=== PATIENT | female | born 1980 | race Caucasian/White ===

== ENCOUNTER 2016-12-26 20:45 | Emergency (ER) | payer BC, MEDICAID ==
[2016-12-26] MEDS ORDERED: KETOROLAC 30 MG/1 ML SDV IVP ONE (22:46)
[2016-12-26] MEDS ORDERED: NS 1,000 ML IV ONE (22:46)
[2016-12-26] MEDS ORDERED: KETOROLAC 30 MG/1 ML SDV ONE (22:47)
[2016-12-26] MEDS ORDERED: ONDANSETRON 4 MG/2 ML VIAL IVP ONE (23:10)
[2016-12-26] MEDS ORDERED: HYDROmorphONE/DILAUDID 1 MG/ML SYR IVP ONE (23:10)
[2016-12-26] MEDS ORDERED: ONDANSETRON 4 MG/2 ML VIAL ONE (23:11)
[2016-12-26] MEDS ORDERED: HYDROmorphONE/DILAUDID 1 MG/ML SYR ONE (23:12)
--- NOTE | 2016-12-26 23:31 | UCPHY ---
H & P Patient Type: Established Chief Complaint Nursing Narrative: migraines x 4 days. none of her usual meds are working. Time Seen by Provider: 12/26/16 22:32 HPI/ROS: This patient is well-known to our clinic with long history of migraine headaches. She presents with 4 day history of migraine headache that did not respond to her home medications. She has associated nausea but no vomiting. She reports the pain as right more than left hemicranial, throbbing in nature and sharp in nature 8 or 9/10 intensity, worse with movement. She has associated right arm paresthesias which are common for her with her migraines. She has photophobia associated with her symptoms. ROS: She has a feeling of dehydration that she attributes to decreased p.o. intake due to her ongoing nausea for the past 4 days. No fevers or other constitutional symptoms. HEENT: No recent trauma. No left ear pain. She does report right external canal pain that feels similar to her previous history of otitis externa to her. That pain is moderate with exquisite tenderness to the right ear. No sore throat. Neuro: No focal weakness. She reports no significant confusion. No neck stiffness. Pulmonary: No coughing or shortness of breath. Cardiovascular: No lightheadedness or heart palpitations. GI: No abdominal pain. : No complaints. 10 point ROS is otherwise negative. Source: Patient Exam Limitations: No limitations - Personal History Current Tetanus Diphtheria and Acellular Pertussis (TDAP): No Tetanus Vaccine Date: MARCH 14 2004 - Medical/Surgical History Hx Asthma: No Hx Chronic Respiratory Disease: No Hx Diabetes: No Hx Cardiac Disease: No Hx Renal Disease: No Hx Cirrhosis: No Hx Alcoholism: No Hx HIV/AIDS: No Hx Splenectomy or Spleen Trauma: No Other PMH: Migraines hysterectomy - Family History Significant Family History: No pertinent family hx - Social History Smoking Status: Never smoked Alcohol Use: Rarely Drug Use: None - Physical Exam Exam: Physical exam: Vital signs are normal General: Patient is in no acute distress. HEENT: Is no external evidence of trauma on exam. Nose atraumatic. Ears: Right ear: There is mild swelling to the external canal with erythema and tenderness. TM appears normal. Left ear: External canal and TM is clear. Oropharynx: No dental trauma or malocclusion. No intraoral lacerations. Eyes: Pupils are equal and reactive to light. Extraocular motions are intact. Optic fundi: Clear with no papilledema or hemorrhage. Neck: Trachea is midline with no stridor. The patient has no midline neck tenderness and retains a full range of motion without increase in pain. Lungs: Clear to auscultation bilaterally Cardiac: Regular rate and rhythm no murmur gallop or rub. Chest: Nontender. Abdomen: Soft nontender no organomegaly Neuro: GCS of 15. Cranial nerves II through XII intact. Cerebellar exam is normal as judged by symmetric rapid hand movements bilaterally. No pronator drift. No sensory or motor deficits are appreciated. Initial differential diagnosis: Migraine headache, tension headache with vomiting, viral illness, intracranial bleed, FELT COVERER infection, otitis externa, Constitutional: Initial Vital Signs Heart Rate 92 12/26/16 23:20 Blood Pressure 112/75 12/26/16 23:20 O2 Sat (%) 100 12/26/16 23:20 O2 Delivery Mode Room Air Allergies/Adverse Reactions: codeine [Codeine] Allergy (Severe, Verified 12/26/16 21:26) Abdominal Pain metoclopramide HCl [From Reglan] Allergy (Severe, Verified 12/26/16 21:26) RESTLESSNESS daptomycin [Daptomycin] Allergy (Intermediate, Verified 12/26/16 21:26) Rash prochlorperazine edisylate [From Compazine] Allergy (Mild, Verified 12/26/16 21: 26) RESTLESSNESS prochlorperazine maleate [From Compazine] Allergy (Mild, Verified 12/26/16 21:26 ) RESTLESSNESS pregabalin [From Lyrica] Allergy (Unknown, Verified 12/26/16 21:26) sumatriptan Allergy (Unknown, Verified 12/26/16 21:26) Sulfa (Sulfonamide Antibiotics) Allergy (Verified 12/26/16 21:26) Home Medications: Medication Instructions Recorded Dihydroergotamine Mesylate [D.h.e] 1 mg IM DAILY PRN 06/26/13 Topiramate [Topamax] 200 mg PO BID 06/26/13 Promethazine HCl [Phenergan 25mg 25 mg PO TID PRN #30 tab 09/17/13 (RX)] Toradol 01/30/14 Tizanidine HCl 08/22/15 Adderall Xr 10 mg Capsule 06/18/16 Ciprofloxacin/Dexamethasone 4 drops OT TID #1 otic.btl 12/26/16 [Ciprodex] Metaxalone [Skelaxin 800 mg (*)] 12/26/16 oxyCODONE HCL/ACETAMINOPHEN 12/26/16 [Percocet 10-325 mg Tablet] Medical Decision Making ED Course/Re-evaluation: IV normal saline bolus Zofran, Benadryl, Toradol, morphine with partial relief followed by a single dose of Dilaudid 0.4 mg with relief down to 09/12. Patient appears clinically well after treatment. I counseled her regarding migraine headache Discussion: Patient responded well to treatment. Not think she has a FELT COVERER infection, intracranial bleed or other complicating factors. - Data Points Medications Given: Discontinued Medications Diphenhydramine HCl (Benadryl Injection) 25 mg IVP EDNOW ONE Stop: 12/26/16 22:47 Last Admin: 12/26/16 22:49 Dose: 25 mg Hydromorphone HCl (Dilaudid) 0.4 mg IVP EDNOW ONE Stop: 12/26/16 23:11 Last Admin: 12/26/16 23:19 Dose: 0.4 mg Sodium Chloride (Ns) 1,000 mls @ 0 mls/hr IV ONCE ONE PRN Reason: Wide Open Stop: 12/26/16 22:47 Last Admin: 12/26/16 22:46 Dose: 1,000 mls Ketorolac Tromethamine (Toradol) 30 mg IVP EDNOW ONE Stop: 12/26/16 22:47 Last Admin: 12/26/16 22:51 Dose: 30 mg Morphine Sulfate (Morphine) 4 mg IVP EDNOW ONE Stop: 12/26/16 22:53 Last Admin: 12/26/16 23:02 Dose: 4 mg Ondansetron HCl (Zofran) 4 mg IVP EDNOW ONE Stop: 12/26/16 23:11 Last Admin: 12/26/16 23:19 Dose: 4 mg Departure - Departure Disposition: Home, Routine, Self-Care Clinical Impression: Dehydration, Migraine Otitis externa Qualifiers: Otitis externa type: unspecified type Laterality: right Chronicity: acute Qualified Code(s): H60.501 - Unspecified acute noninfective otitis externa, right ear Condition: Good Instructions: Otitis Externa (ED), Migraine Headache (ED) Additional Instructions: Diagnosis: Migraine 2. Dehydration 3. Otitis externa Plan: Plenty fluids Continue current medications Ciprodex antibiotic drops Go to the emergency department for any significant worsening despite the treatment plan. Referrals: Isabel Lizarraga MD [Primary Care Provider] - As per Instructions Stand Alone Forms: Work Excuse Prescriptions: Ciprofloxacin/Dexamethasone [Ciprodex] 4 drops OT TID #1 otic.btl - PQRS PQRS Measurement: NA
[2016-12-26 23:33] VITALS: BP 112/75; PULSE 92; O2SAT 100
== END 2016-12-26 23:46 | disposition home or self-care (01) ==
LOC: CED 20:45
DX: G43.909 Migraine, unspecified, not intractable, without status migrainosus (principal); H60.501 Unspecified acute noninfective otitis externa, right ear
CPT/HCPCS: 96361-PO; 96374-PO; 96375-PO; 99214-PO; G0463-PO; J1170; J1200; J1885; J2405

== ENCOUNTER 2017-02-21 19:03 | Emergency (ER) | payer BC, MEDICAID ==
[2017-02-21] MEDS ORDERED: NS 1,000 ML IV ONE (19:52)
[2017-02-21] MEDS ORDERED: IPRATROPIUM/ALBUTEROL 3 ML DEYVIAL IH ONE (19:53)
[2017-02-21] MEDS ORDERED: OXYCODONE/APAP 5/325MG PREPACK#4 BTL TAKEHOME ONE (20:30)
[2017-02-21] MEDS ORDERED: AZITHROMYCIN 250 MG TAB PO ONE (20:30)
[2017-02-21] MEDS ORDERED: ALBUTEROL INH PREPACK MDI TAKEHOME ONE (20:30)
--- NOTE | 2017-02-21 20:33 | EDPHY ---
H & P Time Seen by Provider: 02/21/17 19:42 HPI/ROS: This patient complains of coughing for 5 days-dry hacking cough with green sputum in the morning. She did have a fever 102 some chills 2 days ago and low -grade fever since. No chills over the past 24 hours. She has no pleuritic pain. She does have what feels like bronchial pain her when she coughs. She has a mild sore throat that she attributes to frequent coughing. She also has right ear pain of mild intensity and some nasal congestion. Today she developed some associated left-sided migraine headache that is throbbing in nature 7/10 intensity and similar to her previous migraines. She has no nausea or vomiting with this. She took DHE, oral Toradol and oral Phenergan at 3:00 p.m. without resolution. She also took Skelaxin and she takes Topamax daily. ROS: Constitutional: No significant fatigue. HEENT: No sinus pain. No dysphonia. No drainage from her ear change in her hearing. Pulmonary: No hemoptysis. No respiratory distress. Cardiovascular: No heart palpitations or lightheadedness. GI: No nausea or vomiting. No belly pain. : No symptoms Integumentary: No skin rash Neuro: No numbness tingling or focal weakness. 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 Smoking Status: Never smoked Physical Exam: Her vital signs are normal with exception of a pulse of 103. General Appearance: Alert, no distress. Eyes: Pupils equal and round no pallor or injection. ENT, Mouth: Mucous membranes moist. she has no cranial tenderness. Oropharynx is clear with no erythema. No dysphonia. Ears: External canals and TMs are clear bilaterally. Respiratory: She has a frequent dry cough with mild expiratory wheeze with deep breath otherwise clear to auscultation bilaterally. No rales or rhonchi. Cardiovascular: Regular rate and rhythm. No murmur gallop rub. Gastrointestinal: Abdomen is soft and nontender, no masses, bowel sounds normal. Neurological: GCS 15. Cranial nerves 2-12 grossly intact. No sensory motor deficits are appreciated. Skin: Warm and dry, no rashes. Musculoskeletal: Neck is supple nontender. Extremities are symmetrical, full range of motion. Psychiatric: Mood and affect are normal DIFFERENTIAL DIAGNOSIS: After history and physical exam differential diagnosis was considered for acute bronchitis, doubt pneumonia, URI with reactive airway disease, migraine headache, tension headache, Constitutional: Initial Vital Signs Temperature (C) 37.2 C 02/21/17 19:15 Heart Rate 103 H 02/21/17 19:15 Respiratory Rate 16 02/21/17 19:15 Blood Pressure 135/87 H 02/21/17 19:15 O2 Sat (%) 98 02/21/17 19:15 O2 Delivery Mode Room Air Allergies/Adverse Reactions: codeine [Codeine] Allergy (Severe, Verified 02/21/17 19:20) Abdominal Pain metoclopramide HCl [From Reglan] Allergy (Severe, Verified 02/21/17 19:20) RESTLESSNESS daptomycin [Daptomycin] Allergy (Intermediate, Verified 02/21/17 19:20) Rash prochlorperazine edisylate [From Compazine] Allergy (Mild, Verified 02/21/17 19: 20) RESTLESSNESS prochlorperazine maleate [From Compazine] Allergy (Mild, Verified 02/21/17 19:20 ) RESTLESSNESS pregabalin [From Lyrica] Allergy (Unknown, Verified 02/21/17 19:20) sumatriptan Allergy (Unknown, Verified 02/21/17 19:20) Sulfa (Sulfonamide Antibiotics) Allergy (Verified 02/21/17 19:20) Home Medications: Medication Instructions Recorded Dihydroergotamine Mesylate [D.h.e] 1 mg IM DAILY PRN 06/26/13 Topiramate [Topamax] 200 mg PO BID 06/26/13 Promethazine HCl [Phenergan 25mg 25 mg PO TID PRN #30 tab 09/17/13 (RX)] Toradol 01/30/14 Tizanidine HCl 08/22/15 Adderall Xr 10 mg Capsule 06/18/16 Ciprofloxacin/Dexamethasone 4 drops OT TID #1 otic.btl 12/26/16 [Ciprodex] Metaxalone [Skelaxin 800 mg (*)] 12/26/16 oxyCODONE HCL/ACETAMINOPHEN 12/26/16 [Percocet 10-325 mg Tablet] Azithromycin [Zithromax] 250 mg PO DAILY #4 tab 02/21/17 MDM/Departure - MDM Medications Given: Discontinued Medications Albuterol Sulfate (Proventil Inh Prepack) 1 mdi TAKEHOME EDNOW ONE Stop: 02/21/17 20:31 Last Admin: 02/21/17 20:38 Dose: 1 mdi Albuterol/Ipratropium (Duoneb) 3 ml IH EDNOW ONE Stop: 02/21/17 19:54 Last Admin: 02/21/17 20:30 Dose: 3 ml Azithromycin (Zithromax) 500 mg PO EDNOW ONE PRN Reason: Protocol Stop: 02/21/17 20:31 Last Admin: 02/21/17 20:42 Dose: 500 mg Diphenhydramine HCl (Benadryl Injection) 50 mg IVP EDNOW ONE Stop: 02/21/17 19:53 Last Admin: 02/21/17 20:30 Dose: Not Given Sodium Chloride (Ns) 1,000 mls @ 0 mls/hr IV ONCE ONE; Wide Open PRN Reason: Protocol Stop: 02/21/17 19:53 Last Admin: 02/21/17 20:32 Dose: Not Given Morphine Sulfate (Morphine) 4 mg IVP EDNOW ONE Stop: 02/21/17 19:54 Last Admin: 02/21/17 20:31 Dose: Not Given Oxycodone/Acetaminophen (Percocet 5/325mg Prepack#4) 1 btl TAKEHOME EDNOW ONE Stop: 02/21/17 20:31 Last Admin: 02/21/17 20:41 Dose: 1 btl ED Course/Re-evaluation: DuoNeb with marked reduction in her frequency of coughing. multiple IV attempts were made without success. Given the patient is not having nausea or vomiting will proceed with oral analgesics for her headache. She is also treated with Zithromax 500 mg p.o. for her bronchitis. She is discharged with an albuterol inhaler discussion: This patient appears clinically well without any focal neuro findings or meningismus. No clinical evidence to suggest [employer]IATE infection or bleed. While she has findings consistent bronchitis, do not appreciate evidence of pneumonia. Given her pulmonary improvement lack of other "red flag findings" I think that she is safe for discharge home without further workup at this time. the patient understands the need to return to the ED if she has any worsening of her symptoms despite the treatment plan - Depart Disposition: Home, Routine, Self-Care Clinical Impression: Acute bronchitis Qualifiers: Bronchitis organism: unspecified organism Qualified Code(s): J20.9 - Acute bronchitis, unspecified Migraine headache Qualifiers: Migraine type: unspecified Status migrainosus presence: without status migrainosus Intractability: not intractable Qualified Code(s): G43.909 - Migraine, unspecified, not intractable, without status migrainosus Condition: Good Instructions: Albuterol (By mouth), Narcotic-Analgesic/Acetaminophen (By mouth) , Migraine Headache (ED), Acute Bronchitis (ED) Additional Instructions: diagnoses: 1. Acute bronchitis 2. Migraine Plan: Zithromax antibiotic -next dose tomorrow Albuterol inhaler with spacer for cough, wheeze or shortness of breath Percocet if needed for headache prevents sleep tonight. Follow up with primary care physician this week. Return for any significant worsening despite the treatment plan. Stand Alone Forms: Work Excuse Prescriptions: Azithromycin [Zithromax] 250 mg PO DAILY #4 tab Referrals: Isabel Lizarraga MD [Primary Care Provider] - As per Instructions
[2017-02-21 20:34] VITALS: O2SAT 94
[2017-02-21 20:43] VITALS: BP 133/67; PULSE 81; RESP 18; TEMP 98.4
== END 2017-02-21 20:51 | disposition home or self-care (01) ==
LOC: CED 19:03
DX: J20.9 Acute bronchitis, unspecified (principal); G43.909 Migraine, unspecified, not intractable, without status migrainosus
CPT/HCPCS: J1200

== ENCOUNTER 2017-04-04 16:35 | Emergency (ER) | payer BC, MEDICAID ==
[2017-04-04 16:51] VITALS: TEMP 98.2
[2017-04-04] MEDS ORDERED: ONDANSETRON 4 MG/2 ML VIAL IVP ONE (17:21)
[2017-04-04] MEDS ORDERED: HALOPERIDOL LACT 5 MG/ML INJ IVP ONE (17:22)
[2017-04-04] MEDS ORDERED: MAGNESIUM SULF 1 GM/DEXTROSE 100 ML IV ONE (17:22)
[2017-04-04] MEDS ORDERED: DIAZEPAM 10 MG/2 ML SYR IVP ONE (17:23)
[2017-04-04 18:22] VITALS: RESP 16; O2SAT 95
--- NOTE | 2017-04-04 18:57 | EDPHY ---
H & P Stated Complaint: migraine since sunday, shoulder pain Time Seen by Provider: 04/04/17 17:12 HPI/ROS: This patient complains of a headache that is left hemicranial, "vice assistant city attorney" in nature 8/10 intensity present over the past 4 days initially waxing waning but steady for the past 48 hours despite taking Toradol 60 mg IM at 4:00 a.m. and DHE 1 mg IM and 4:00 a.m.. Symptoms are the same as previous migraines. She has associated neck pain extends to the trapezius region of her shoulders. Symptoms worsen with movement. She has associated photophobia and nausea but no vomiting. She was driven in by her adult daughter by private IV: for further evaluation. ROS: Constitutional: No fevers. She has mild fatigue that she attributes to decreased sleep due to the headache. HEENT: No nasal congestion or sinus pain. No visual changes. No ear complaints. No sore throat. Pulmonary: No cough shortness of breath Cardiovascular: No heart palpitations or lightheadedness. No chest pain. GI: No abdominal pain : No symptoms Integumentary: No skin rash Musculoskeletal: No recent trauma. No other complaints Endocrine: No complaints Complete review of symptoms is otherwise negative. Source: Patient Exam Limitations: No limitations - Personal History LMP (Females 10-55): Hysterectomy Tetanus Vaccine Date: MARCH 14 2004 - Medical/Surgical History PMH: Migraines Hx Asthma: Yes Hx Chronic Respiratory Disease: No Hx Diabetes: No Hx Cardiac Disease: No Hx Renal Disease: No Hx Cirrhosis: No Hx Alcoholism: No Hx HIV/AIDS: No Hx Splenectomy or Spleen Trauma: No Other PMH: Migraines, asthma as a child, hysterectomy, bilateral carpal tunnel, bursitis both shoulders, x2, planar fascitits, R knee ACL, ADHD, chronic muscle pain. - Social History Smoking Status: Never smoked Alcohol Use: Rarely Drug Use: None - Physical Exam Exam: Physical exam: Vital signs are normal General: Patient is in no acute distress. HEENT: Is no external evidence of trauma on exam. She does have cranial tenderness on the left side but this does not reproduce her symptoms. No sinus tenderness. Nose atraumatic. Ears: Clear bilaterally with no hemotympanum. Oropharynx: No dental trauma or malocclusion. No intraoral lacerations. Eyes: Pupils are equal and reactive to light. Extraocular motions are intact. Optic fundi: Clear with no papilledema or hemorrhage. Neck: Supple with no meningismus. She is a lateral paraspinous muscular tenderness bilaterally Lungs: Clear to auscultation bilaterally Cardiac: Regular rate and rhythm no murmur gallop or rub. Abdomen: Soft nontender no organomegaly Back: Nontender except for trapezius muscles bilaterally. Neuro: GCS of 15. Cranial nerves II through XII intact. Cerebellar exam is normal as judged by symmetric rapid hand movements bilaterally. No pronator drift. No sensory or motor deficits are appreciated. Initial differential diagnosis: Migraine, neck strain, tension headache, intracranial lesion, intracranial bleed Constitutional: Initial Vital Signs Temperature (C) 36.8 C 04/04/17 16:48 Heart Rate 99 04/04/17 16:48 Respiratory Rate 18 04/04/17 16:48 Blood Pressure 124/85 H 04/04/17 16:48 O2 Sat (%) 97 04/04/17 16:48 O2 Delivery Mode Room Air Allergies/Adverse Reactions: codeine [Codeine] Allergy (Severe, Verified 04/04/17 16:51) Abdominal Pain metoclopramide HCl [From Reglan] Allergy (Severe, Verified 04/04/17 16:51) RESTLESSNESS daptomycin [Daptomycin] Allergy (Intermediate, Verified 04/04/17 16:51) Rash prochlorperazine edisylate [From Compazine] Allergy (Mild, Verified 04/04/17 16: 51) RESTLESSNESS prochlorperazine maleate [From Compazine] Allergy (Mild, Verified 04/04/17 16:51 ) RESTLESSNESS pregabalin [From Lyrica] Allergy (Unknown, Verified 04/04/17 16:51) sumatriptan Allergy (Unknown, Verified 04/04/17 16:51) Sulfa (Sulfonamide Antibiotics) Allergy (Verified 04/04/17 16:51) Home Medications: Medication Instructions Recorded Dihydroergotamine Mesylate [D.h.e] 1 mg IM DAILY PRN 06/26/13 Topiramate [Topamax] 200 mg PO BID 06/26/13 Promethazine HCl [Phenergan 25mg 25 mg PO TID PRN #30 tab 09/17/13 (RX)] Toradol 05/30/14 Tizanidine HCl 08/22/15 Adderall Xr 10 mg Capsule 06/18/16 Metaxalone [Skelaxin 800 mg (*)] 12/26/16 Medical Decision Making ED Course/Re-evaluation: IV normal saline bolus, Haldol 2.5 mg IV, Zofran 4 mg IV Magnesium 1 g IV Benadryl 25 mg IV Valium 5 mg IV Patient had a brief nap and had complete resolution of her headache, nausea and neck pain. Elected to hold on IV steroids she has a history of bleeding ulcer, had 60 mg of Toradol today and had resolution of her symptoms with initial treatment plan Discussion: Given complete relief of symptoms with migraine treatment, and a exam free of neuro deficits or other concerning findings, I do not think this patient has UPS DRIVER infection, intracranial bleed or other complicating factors. - Data Points Medications Given: Discontinued Medications Diazepam (Valium Injection) 5 mg IVP EDNOW ONE Stop: 04/04/17 17:24 Last Admin: 04/04/17 17:32 Dose: 5 mg Diphenhydramine HCl (Benadryl Injection) 25 mg IVP EDNOW ONE Stop: 04/04/17 17:24 Last Admin: 04/04/17 17:34 Dose: 25 mg Haloperidol Lactate (Haldol Injection) 2.5 mg IVP EDNOW ONE Stop: 04/04/17 17:23 Last Admin: 04/04/17 17:32 Dose: 2.5 mg Magnesium Sulfate/Dextrose (Magnesium Sulf 1 Gm (Premix)) 100 mls @ 100 mls/hr IV EDNOW ONE Stop: 04/04/17 18:21 Last Admin: 04/04/17 17:38 Dose: 100 mls Ondansetron HCl (Zofran) 4 mg IVP EDNOW ONE Stop: 04/04/17 17:22 Last Admin: 04/04/17 17:31 Dose: 4 mg Departure - Departure Disposition: Home, Routine, Self-Care Clinical Impression: Neck pain Migraine Qualifiers: Migraine type: without aura Status migrainosus presence: with status migrainosus Intractability: not intractable Qualified Code(s): G43.001 - Migraine without aura, not intractable, with status migrainosus Condition: Fair Instructions: Migraine Headache (ED) Additional Instructions: Diagnosis: Migraine 2. Neck pain Plan: Home to rest. Plenty fluids Continue current migraine medications. Return for any significant worsening despite the treatment plan Referrals: Isabel Lizarraga MD [Primary Care Provider] - As per Instructions
[2017-04-04 19:11] VITALS: BP 119/74; PULSE 87
== END 2017-04-04 19:10 | disposition home or self-care (01) ==
LOC: CED 16:35
DX: G43.001 Migraine without aura, not intractable, with status migrainosus (principal); J45.909 Unspecified asthma, uncomplicated
CPT/HCPCS: 96374; J1200; J2405; J3475

== ENCOUNTER 2017-05-30 14:01 | Emergency (ER) | payer BC, MEDICAID ==
[2017-05-30 14:15] VITALS: RESP 18; TEMP 98.1
[2017-05-30] MEDS ORDERED: DEXAMETHASONE 4 MG/ML VIAL IVP ONE (14:25)
[2017-05-30] MEDS ORDERED: PROMETHAZINE HCL 25 MG/ML INJ IVP ONE (14:25)
[2017-05-30] MEDS ORDERED: NS 1,000 ML IV ONE (14:25)
[2017-05-30] MEDS ORDERED: DIAZEPAM 10 MG/2 ML SYR IVP ONE (14:25)
--- NOTE | 2017-05-30 14:30 | EDPHY ---
H & P Stated Complaint: migraine, shoulder swelling, nausea - Personal History LMP (Females 10-55): Hysterectomy Tetanus Vaccine Date: MARCH 14 2004 - Medical/Surgical History Hx Asthma: Yes Hx Chronic Respiratory Disease: No Hx Diabetes: No Hx Cardiac Disease: No Hx Renal Disease: No Hx Cirrhosis: No Hx Alcoholism: No Hx HIV/AIDS: No Hx Splenectomy or Spleen Trauma: No Other PMH: Migraines, asthma as a child, hysterectomy, bilateral carpal tunnel, bursitis both shoulders, x2, planar fascitits, R knee ACL, ADHD, chronic muscle pain. - Social History Smoking Status: Never smoked Time Seen by Provider: 05/30/17 14:16 HPI/ROS: CHIEF COMPLAINT: Migraine headache HISTORY OF PRESENT ILLNESS: This is a 36-year-old female with a long history of migraine headaches who is known to this facility. She presents today with 4 days of migraine that has not responded to her usual home medications. Home medications include Topamax and Toradol. She has taken 120 mg of Toradol in the last 2 days and has also taken some Advil. Today's migraine is similar to her previous migraines. She has left-sided head pain, photophobia, nausea, and some left facial and left arm numbness. The paresthesias have become a common feature of her migraine headaches. She denies recent fever, confusion, visual changes, neck stiffness, or numbness. She does report some tightening of her left trapezius muscle and feels that this is related to her headache pain--she experiences this as shoulder swelling.. REVIEW OF SYSTEMS: A ten point review of systems was performed and is negative with the exception of the items mentioned in the HPI. Past medical history: 1. Migraine headache 2. GI bleed 3. Chronic ankle pain Past surgical history: Hysterectomy Social history: She is . She is not currently employed. No tobacco use. General Appearance: Alert. Vital signs reviewed. Afebrile. Blood pressure 121/88. Eyes: Pupils equal and round, no conjunctival injection, no discharge. Anicteric. ENT, Mouth: Mucous membranes are moist, no oropharyngeal erythema or edema. Neck: No lymphadenopathy, supple. No in signs. Respiratory: Lungs are clear to auscultation; no wheezes, rales, or rhonchi. Cardiovascular: Regular rate and rhythm; no murmur, rub, or gallop. Gastrointestinal: Abdomen is soft and nontender. Skin: Warm and dry, no rashes on exposed skin, normal color. Back: Nontender to palpation over the thoracolumbar spine. No CVAT. Extremities: No lower extremity edema, no calf tenderness or swelling. No appreciable swelling of the left shoulder. She has full active range of motion of her left shoulder. No skin warmth over the left shoulder. Neurological: Alert and oriented. Moving all four extremities easily and equally. Cranial nerves II through XII are examined and are intact (visual acuity not tested). She does not have reproducible sensory deficits. Sensation is intact to light touch over all 4 extremities. Strength is 5/5 in major motor groups. Psychiatric: Normal affect. No agitation. (Colleen Conte) Constitutional: Initial Vital Signs Temperature (C) 36.7 C 05/30/17 14:05 Heart Rate 95 05/30/17 14:05 Respiratory Rate 18 05/30/17 14:05 Blood Pressure 121/88 H 05/30/17 14:05 O2 Sat (%) 99 05/30/17 14:05 O2 Delivery Mode Room Air Allergies/Adverse Reactions: codeine [Codeine] Allergy (Severe, Verified 05/30/17 14:08) Abdominal Pain metoclopramide HCl [From Reglan] Allergy (Severe, Verified 05/30/17 14:08) RESTLESSNESS daptomycin [Daptomycin] Allergy (Intermediate, Verified 05/30/17 14:08) Rash prochlorperazine edisylate [From Compazine] Allergy (Mild, Verified 05/30/17 14: 08) RESTLESSNESS prochlorperazine maleate [From Compazine] Allergy (Mild, Verified 05/30/17 14:08 ) RESTLESSNESS pregabalin [From Lyrica] Allergy (Unknown, Verified 05/30/17 14:08) sumatriptan Allergy (Unknown, Verified 05/30/17 14:08) Sulfa (Sulfonamide Antibiotics) Allergy (Verified 05/30/17 14:08) Home Medications: Medication Instructions Recorded Dihydroergotamine Mesylate [D.h.e] 1 mg IM DAILY PRN 06/26/13 Topiramate [Topamax] 200 mg PO BID 06/26/13 Promethazine HCl [Phenergan 25mg 25 mg PO TID PRN #30 tab 09/17/13 (RX)] Toradol 01/30/14 Adderall Xr 10 mg Capsule 06/18/16 PHENTERMINE HCL 05/30/17 Medical Decision Making ED Course/Re-evaluation: 36-year-old female with migraine headache, typical for her. Her headache is not responded to her usual home medications. She has taken over 120 mg of Toradol in the last couple of days and has also taken some ibuprofen. She has a history of GI bleeding. I will not use an anti-inflammatory to treat her headache today. She is being given normal saline 1 L IV fluid, Phenergan 12.5 mg IV (works better for her than Zofran), Benadryl 25 mg IV, Decadron 8 mg IV (to hopefully prevent rebound), and Valium 5 mg IV (for muscle spasm associated with LATHAM). Her care will be transferred to Dr. Esa Cruz at 3:00 p.m.. (Colleen Conte) Differential Diagnosis: Headache including but not limited to subarachnoid hemorrhage, migraine headache , tension headache and infectious causes such as meningitis, pharyngitis and sinusitis. (Colleen Conte) Other Provider: On re-evaluation, patient states her headache is better. She is ambulatory without neurologic deficit. Per plan from Dr. Conte, patient will be discharged home. (Esa Cruz) - Data Points Medications Given: Discontinued Medications Dexamethasone (Decadron Injection) 8 mg IVP EDNOW ONE Stop: 05/30/17 14:26 Last Admin: 05/30/17 14:45 Dose: 8 mg Diazepam (Valium Injection) 5 mg IVP EDNOW ONE Stop: 05/30/17 14:26 Last Admin: 05/30/17 14:45 Dose: 5 mg Diphenhydramine HCl (Benadryl Injection) 25 mg IVP EDNOW ONE Stop: 05/30/17 14:27 Last Admin: 05/30/17 14:43 Dose: 25 mg Sodium Chloride (Ns) 1,000 mls @ 3,000 mls/hr IV EDNOW ONE Stop: 05/30/17 14:44 Last Admin: 05/30/17 14:42 Dose: 1,000 mls Promethazine HCl (Phenergan) 12.5 mg IVP EDNOW ONE Stop: 05/30/17 14:26 Last Admin: 05/30/17 14:44 Dose: 25 mg Departure - Departure Disposition: Home, Routine, Self-Care Clinical Impression: Migraine headache Qualifiers: Migraine type: unspecified Status migrainosus presence: without status migrainosus Intractability: not intractable Qualified Code(s): G43.909 - Migraine, unspecified, not intractable, without status migrainosus Condition: Good Instructions: Migraine Headache (ED) Referrals: Isabel Lizarraga MD [Primary Care Provider] - As per Instructions
[2017-05-30 17:08] VITALS: PULSE 78
[2017-05-30 17:10] VITALS: BP 111/75; O2SAT 94
== END 2017-05-30 16:42 | disposition home or self-care (01) ==
LOC: CED 14:01
DX: G43.909 Migraine, unspecified, not intractable, without status migrainosus (principal); J45.909 Unspecified asthma, uncomplicated
CPT/HCPCS: 96374; J1100; J1200; J2550

== ENCOUNTER 2017-09-04 20:58 | Emergency (ER) | payer BC, MEDICAID ==
--- NOTE | 2017-09-04 20:59 | EDPHY ---
H & P HPI/ROS: HPI CHIEF COMPLAINT: Headache HISTORY OF PRESENT ILLNESS: Patient is a 37-year-old female, history of migraine headaches she presents emergency room with 2-3 days of ongoing left- sided headache that she describes exactly like her previous migraines that is throbbing in nature left side started gradual onset 2 days ago she has been taking her migraine medicine without much relief. Additionally she reports that she has had a bad cough. Nonproductive. Denies fever. Denies neck pain. Denies meningeal signs. States her headache is exactly like her previous migraine headaches. Additionally has a bronchitic sounding cough for the past week getting worse. Denies chest pain or shortness of breath. Patient reports to me that she has a long standing migraine headache sufferer. This is very similar to previous migraines left-sided. This where she gets her headache. Past Medical History: History of migraine headaches, GI bleed, carpal tunnel syndrome, attention deficit hyperactivity disorder, chronic muscle pain Past Surgical History: Social History: Denies daily use of drugs alcohol tobacco. Family History: Noncontributory ROS REVIEW OF SYSTEMS: A comprehensive 10 point review of systems is otherwise negative aside from elements mentioned in the history of present illness. Exam Constitutional appears nontoxic, triage nursing summary reviewed, vital signs reviewed, awake/alert. Eyes normal conjunctivae and sclera, EOMI, PERRLA. HENT normal inspection, atraumatic, moist mucus membranes, no epistaxis, neck supple/ no meningismus, no raccoon eyes. Respiratory bronchitic sounding cough on exam, clear to auscultation bilaterally, normal breath sounds, no respiratory distress, no wheezing. Cardiovascular rate normal, regular rhythm, no murmur, no edema, distal pulses normal. Gastrointestinal soft, non-tender, no rebound, no guarding, normal bowel sounds, no distension, no pulsatile mass. Genitourinary no CVA tenderness. Musculoskeletal no midline vertebral tenderness, full range of motion, no calf swelling, no tenderness of extremities, no meningismus, good pulses, neurovascularly intact. Skin pink, warm, & dry, no rash, skin atraumatic. Neurologic awake, alert and oriented x 3, AAOx3, moves all 4 extremities equally, motor intact, sensory intact, CN II-XII intact, normal cerebellar, normal vision, normal speech. Psychiatric normal mood/affect. Heme/Lymph/Immune no lymphadenopathy. Differential Diagnosis: Includes but is not limited to in a particular order migraine headache, tension headache, cluster headache, bronchitis, pneumonia Medical Decision Making: Plan for this patient DuoNeb breathing treatment for cough, and bronchitic sounding cough, IV establishment basic blood work, IV fluid bolus, migraine medication, will give her dose of Dilaudid 0.5 mg IV, Decadron and Benadryl. Re-evaluate. Re-evaluation: ED x-ray chest two view: Reviewed by myself. No acute cardiopulmonary disease. I do not appreciate focal pneumonia. 2222: Patient is feeling much better, he feels much better after DuoNeb breathing treatment her chest x-ray been reviewed is unremarkable for pneumonia. Blood work is reassuring. Her headache is improved with migraine medication. I will prescribe her azithromycin, albuterol, ibuprofen. She understands return emergency room she develops worsening symptoms includes worsening shortness of breath worsening cough worsening headache. Fever vomiting or any questions or concerns. She is comfortable this plan. Return precautions discussed. Source: Patient - Personal History Tetanus Vaccine Date: MARCH 14 2004 - Medical/Surgical History Hx Asthma: Yes Hx Chronic Respiratory Disease: No Hx Diabetes: No Hx Cardiac Disease: No Hx Renal Disease: No Hx Cirrhosis: No Hx Alcoholism: No Hx HIV/AIDS: No Hx Splenectomy or Spleen Trauma: No Other PMH: Migraines, asthma as a child, hysterectomy, bilateral carpal tunnel, bursitis both shoulders, x2, planar fascitits, R knee ACL, ADHD, chronic muscle pain. - Social History Smoking Status: Never smoked Constitutional: Initial Vital Signs Temperature (C) 36.9 C 09/04/17 21:00 Heart Rate 116 H 09/04/17 21:00 Respiratory Rate 18 09/04/17 21:00 Blood Pressure 149/102 H 09/04/17 21:00 O2 Sat (%) 98 09/04/17 21:00 O2 Delivery Mode Room Air Allergies/Adverse Reactions: codeine [Codeine] Allergy (Severe, Verified 05/30/17 14:08) Abdominal Pain metoclopramide HCl [From Reglan] Allergy (Severe, Verified 05/30/17 14:08) RESTLESSNESS daptomycin [Daptomycin] Allergy (Intermediate, Verified 05/30/17 14:08) Rash prochlorperazine edisylate [From Compazine] Allergy (Mild, Verified 05/30/17 14: 08) RESTLESSNESS prochlorperazine maleate [From Compazine] Allergy (Mild, Verified 05/30/17 14:08 ) RESTLESSNESS pregabalin [From Lyrica] Allergy (Unknown, Verified 05/30/17 14:08) sumatriptan Allergy (Unknown, Verified 05/30/17 14:08) Sulfa (Sulfonamide Antibiotics) Allergy (Verified 05/30/17 14:08) Home Medications: Medication Instructions Recorded Dihydroergotamine Mesylate [D.h.e] 1 mg IM DAILY PRN 06/26/13 Topiramate [Topamax] 200 mg PO BID 06/26/13 Promethazine HCl [Phenergan 25mg 25 mg PO TID PRN #30 tab 09/17/13 (RX)] Toradol 01/30/14 Adderall Xr 10 mg Capsule 06/18/16 PHENTERMINE HCL 05/30/17 AZITHROMYCIN [Z-PACK] 250 mg PO DAILY #6 tab 09/04/17 Albuterol [Proventil Inhaler HFA 1 - 2 puffs IH Q4H #1 mdi 09/04/17 (*)] Ibuprofen [Motrin (*)] 800 mg PO Q6-8PRN #10 tab 09/04/17 Medical Decision Making - Data Points Laboratory Results: Laboratory Results 09/04/17 21:30 09/04/17 21:30 09/04/17 09/04/17 21:30 21:30 WBC 11.54 10^3/uL H 10^3/uL (3.80-9.50) RBC 5.04 10^6/uL 10^6/uL (4.18-5.33) Hgb 14.3 g/dL g/dL (12.6-16.3) Hct 43.9 % % (38.0-47.0) MCV 87.1 fL fL (81.5-99.8) MCH 28.4 pg pg (27.9-34.1) MCHC 32.6 g/dL g/dL (32.4-36.7) RDW 14.3 % % (11.5-15.2) Plt Count 335 10^3/uL 10^3/uL (150-400) MPV 9.7 fL fL (8.7-11.7) Neut % (Auto) 58.4 % % (39.3-74.2) Lymph % (Auto) 33.7 % % (15.0-45.0) [place] % (Auto) 5.3 % % (4.5-13.0) Eos % (Auto) 1.7 % % (0.6-7.6) Baso % (Auto) 0.6 % % (0.3-1.7) Nucleat RBC Rel Count 0.0 % % (0.0-0.2) Absolute Neuts (auto) 6.74 10^3/uL H 10^3/uL (1.70-6.50) Absolute Lymphs (auto) 3.89 10^3/uL H 10^3/uL (1.00-3.00) Absolute Monos (auto) 0.61 10^3/uL 10^3/uL (0.30-0.80) Absolute Eos (auto) 0.20 10^3/uL 10^3/uL (0.03-0.40) Absolute Basos (auto) 0.07 10^3/uL 10^3/uL (0.02-0.10) Absolute Nucleated RBC 0.00 10^3/uL 10^3/uL (0-0.01) Immature Gran % 0.3 % % (0.0-1.1) Immature Gran # 0.03 10^3/uL 10^3/uL (0.00-0.10) Sodium 144 mEq/L mEq/L (134-144) Potassium 3.7 mEq/L mEq/L (3.5-5.2) Chloride 106 mEq/L mEq/L (97-110) Carbon Dioxide 20 mEq/l L mEq/l (22-31) Anion Gap 18 mEq/L H mEq/L (8-16) BUN 16 mg/dL mg/dL (7-23) Creatinine 0.6 mg/dL mg/dL (0.6-1.0) Estimated GFR > 60 Glucose 132 mg/dL H mg/dL (70-100) Calcium 8.9 mg/dL mg/dL (8.5-10.4) Medications Given: Discontinued Medications Albuterol/Ipratropium (Duoneb) 3 ml IH EDNOW ONE Stop: 09/04/17 21:12 Last Admin: 09/04/17 21:30 Dose: 3 ml Dexamethasone (Decadron Injection) 10 mg IVP EDNOW ONE Stop: 09/04/17 21:05 Last Admin: 09/04/17 21:30 Dose: 10 mg Diphenhydramine HCl (Benadryl Injection) 50 mg IVP EDNOW ONE Stop: 09/04/17 21:05 Last Admin: 09/04/17 21:30 Dose: 50 mg Hydromorphone HCl (Dilaudid) 0.5 mg IVP EDNOW ONE Stop: 09/04/17 21:06 Last Admin: 09/04/17 21:30 Dose: 0.5 mg Sodium Chloride (Ns) 1,000 mls @ 0 mls/hr IV ONCE ONE; Wide Open PRN Reason: Protocol Stop: 09/04/17 21:05 Last Admin: 09/04/17 21:29 Dose: 1,000 mls Ketorolac Tromethamine (Toradol) 30 mg IVP EDNOW ONE Stop: 09/04/17 21:05 Last Admin: 09/04/17 21:42 Dose: Not Given Departure - Departure Disposition: Home, Routine, Self-Care Clinical Impression: Bronchitis Headache Qualifiers: Headache type: unspecified Headache chronicity pattern: acute headache Intractability: not intractable Qualified Code(s): R51 - Headache Condition: Good Instructions: Acute Bronchitis (ED), General Headache (ED) Additional Instructions: 1. Stay well-hydrated drink lots of fluids. 2. Tylenol or Motrin for pain control. 3. Albuterol inhaler 2 puffs as needed every 4 hr for cough 4. Follow up with her primary care doctor. 5. Return to the emergency room if you have worsening symptoms questions or concerns. Referrals: Isabel Lizarraga MD [Primary Care Provider] - As per Instructions Prescriptions: Albuterol [Proventil Inhaler HFA (*)] 1 - 2 puffs IH Q4H #1 mdi AZITHROMYCIN [Z-PACK] 250 mg PO DAILY #6 tab Ibuprofen [Motrin (*)] 800 mg PO Q6-8PRN #10 tab
[2017-09-04] MEDS ORDERED: NS 1,000 ML IV ONE (21:04)
[2017-09-04] MEDS ORDERED: KETOROLAC 30 MG/1 ML SDV IVP ONE (21:04)
[2017-09-04] MEDS ORDERED: DEXAMETHASONE 10 MG/ML VIAL IVP ONE (21:04)
[2017-09-04] MEDS ORDERED: HYDROmorphONE/DILAUDID 1 MG/ML INJ IVP ONE (21:05)
[2017-09-04] MEDS ORDERED: IPRATROPIUM/ALBUTEROL 3 ML DEYVIAL IH ONE (21:11)
[2017-09-04 21:14] VITALS: RESP 18
[2017-09-04] MEDS ORDERED: KETOROLAC 15 MG/1 ML SDV ONE (21:34)
[2017-09-04 21:35] LABS: PLATELET COUNT 335 10^3/uL (150-400)
[2017-09-04] MEDS ORDERED: AZITHROMYCIN 250 MG TAB PO ONE (22:21)
[2017-09-04 22:38] VITALS: BP 114/79; PULSE 102; TEMP 98.2; O2SAT 96
== END 2017-09-04 22:47 | disposition home or self-care (01) ==
LOC: CED 20:58
DX: J20.9 Acute bronchitis, unspecified (principal); E86.9 Volume depletion, unspecified; J45.909 Unspecified asthma, uncomplicated
CPT/HCPCS: 71046-PO; 80048-PO; 85025-PO; 96374; J1100; J1170; J1200; J1885

== ENCOUNTER 2017-10-31 21:16 | Emergency (ER) | payer BC ==
[2017-10-31] MEDS ORDERED: MAGNESIUM SULF 1 GM/DEXTROSE 100 ML IV ONE (21:42)
[2017-10-31] MEDS ORDERED: HALOPERIDOL LACT 5 MG/ML INJ IVP ONE (21:42)
[2017-10-31] MEDS ORDERED: DEXAMETHASONE 10 MG/ML VIAL IVP ONE (21:42)
--- NOTE | 2017-10-31 21:47 | EDPHY ---
H & P Stated Complaint: MIGRAINE, BACK PAIN, ARM PAIN Time Seen by Provider: 10/31/17 21:31 HPI/ROS: Chief Complaint: Migraine headache, back pain HPI: 37-year-old woman with a history of chronic migraines presenting with a migraine for the last 2 days. Pain is about an 8/10. Is on the left side. Is typical for her migraines. She has taken DHE and IM Toradol twice today without any relief. She has had nausea vomiting. Positive photophobia and phonophobia. She did take some Phenergan last night with her Topamax but was able to keep it down. Is not taking any oral medications today. She is well known to this department with similar presentations in the past. She is also complaining of some back pain and some left arm pain which is similar to prior episodes. For the last 2 days she has have some epigastric abdominal pain. No dark black her doctor cardiac stools. No fevers or chills. ROS: 10 point Review of Systems is negative except as noted in the HPI. Social History: No smoking, no alcohol, no recreational drug use Family History: non-contributory Physical Exam: Gen: Awake, Alert, No Distress, obese HEENT: Nose: no rhinorrhea Eyes: PERRLA, EOMI Mouth: Moist mucosa Neck: Supple, no JVD Chest: nontender, lungs clear to auscultation Heart: S1, S2 normal, no murmur Abd: Soft, mild epigastric tenderness, no guarding Back: no CVA tenderness, no midline tenderness Ext: no edema, non-tender Skin: no rash Neuro: CN II-XII intact, Sensation grossly intact, Strength 5/5 in bilateral upper and lower extremities - Personal History LMP (Females 10-55): Hysterectomy Current Tetanus/Diphtheria Vaccine: No Current Tetanus Diphtheria and Acellular Pertussis (TDAP): No Tetanus Vaccine Date: MARCH 14 2004 - Medical/Surgical History Hx Asthma: Yes Hx Chronic Respiratory Disease: No Hx Diabetes: No Hx Cardiac Disease: No Hx Renal Disease: No Hx Cirrhosis: No Hx Alcoholism: No Hx HIV/AIDS: No Hx Splenectomy or Spleen Trauma: No Other PMH: Migraines, asthma as a child, hysterectomy, bilateral carpal tunnel, bursitis both shoulders, x2, planar fascitits, R knee ACL, ADHD, chronic muscle pain. - Social History Smoking Status: Never smoked Constitutional: Initial Vital Signs Temperature (C) 36.6 C 10/31/17 21:29 Heart Rate 105 H 10/31/17 21:29 Respiratory Rate 18 10/31/17 21:29 Blood Pressure 149/99 H 10/31/17 21:29 O2 Sat (%) 96 10/31/17 21:29 O2 Delivery Mode Room Air Allergies/Adverse Reactions: codeine [Codeine] Allergy (Severe, Verified 10/31/17 21:35) Abdominal Pain metoclopramide HCl [From Reglan] Allergy (Severe, Verified 10/31/17 21:35) RESTLESSNESS daptomycin [Daptomycin] Allergy (Intermediate, Verified 10/31/17 21:35) Rash prochlorperazine edisylate [From Compazine] Allergy (Mild, Verified 10/31/17 21: 35) RESTLESSNESS prochlorperazine maleate [From Compazine] Allergy (Mild, Verified 10/31/17 21:35 ) RESTLESSNESS pregabalin [From Lyrica] Allergy (Unknown, Verified 10/31/17 21:35) sumatriptan Allergy (Unknown, Verified 10/31/17 21:35) Sulfa (Sulfonamide Antibiotics) Allergy (Verified 10/31/17 21:35) Home Medications: Medication Instructions Recorded Dihydroergotamine Mesylate [D.h.e] 1 mg IM DAILY PRN 06/26/13 Topiramate [Topamax] 200 mg PO BID 06/26/13 Promethazine HCl [Phenergan 25mg 25 mg PO TID PRN #30 tab 09/17/13 (RX)] Toradol 01/30/14 Adderall Xr 10 mg Capsule 06/18/16 PHENTERMINE HCL 05/30/17 AZITHROMYCIN [Z-PACK] 250 mg PO DAILY #6 tab 09/04/17 Albuterol [Proventil Inhaler HFA 1 - 2 puffs IH Q4H #1 mdi 09/04/17 (*)] Ibuprofen [Motrin (*)] 800 mg PO Q6-8PRN #10 tab 09/04/17 ZYRTEC 10/31/17 Medical Decision Making ED Course/Re-evaluation: Patient is feeling significantly improved after IV Haldol 2.5 mg, Benadryl 50 mg , Decadron 10 mg, and 1 g of magnesium. Will discharge with outpatient follow- up. - Data Points Medications Given: Magnesium Sulfate/Dextrose (Magnesium Sulf 1 Gm (Premix)) 100 mls @ 100 mls/hr IV EDNOW ONE Stop: 10/31/17 22:41 Last Admin: 10/31/17 22:03 Dose: 100 mls Discontinued Medications Dexamethasone (Decadron Injection) 10 mg IVP EDNOW ONE Stop: 10/31/17 21:43 Last Admin: 10/31/17 22:00 Dose: 10 mg Diphenhydramine HCl (Benadryl Injection) 50 mg IVP EDNOW ONE Stop: 10/31/17 21:43 Last Admin: 10/31/17 21:56 Dose: 50 mg Haloperidol Lactate (Haldol Injection) 2.5 mg IVP EDNOW ONE Stop: 10/31/17 21:43 Last Admin: 10/31/17 22:01 Dose: 2.5 mg Departure - Departure Disposition: Home, Routine, Self-Care Clinical Impression: Migraine headache Condition: Good Instructions: Migraine Headache (ED) Additional Instructions: Return to the emergency department full worsening headache, uncontrolled nausea vomiting, fevers, chills, or any other concerns.
[2017-10-31 23:19] VITALS: PULSE 90; RESP 20; TEMP 98.8; O2SAT 94
[2017-10-31 23:20] VITALS: BP 118/72
== END 2017-10-31 23:28 | disposition home or self-care (01) ==
LOC: CED 21:16
DX: G43.909 Migraine, unspecified, not intractable, without status migrainosus (principal); J45.909 Unspecified asthma, uncomplicated
CPT/HCPCS: 96365; J1100; J1200; J1630; J3475

== ENCOUNTER 2018-02-10 23:08 | Emergency (ER) | payer BC, MEDICAID ==
[2018-02-10] MEDS ORDERED: IPRATROPIUM/ALBUTEROL 3 ML DEYVIAL ONE (23:19)
[2018-02-10] MEDS ORDERED: predniSONE 20 MG TAB PO ONE (23:20)
[2018-02-10] MEDS ORDERED: IPRATROPIUM/ALBUTEROL 3 ML DEYVIAL IH ONE (23:20)
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
[2018-02-10] MEDS ORDERED: LORazepam 1 MG TAB PO ONE (23:50)
[2018-02-11] MEDS ORDERED: ALBUTEROL INH PREPACK MDI TAKEHOME ONE (00:20)
[2018-02-11 00:21] VITALS: BP 116/80
== END 2018-02-11 00:28 | disposition home or self-care (01) ==
LOC: CED 23:08
DX: J18.9 Pneumonia, unspecified organism (principal)
CPT/HCPCS: 71046-PO; J7512

== ENCOUNTER 2018-05-21 09:10 | Emergency (ER) | payer BC ==
[2018-05-21] MEDS ORDERED: LORazepam 2 MG/ML INJ IVP ONE (09:21)
[2018-05-21] MEDS ORDERED: NS 1,000 ML IV ONE (09:21)
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
[2018-05-21] MEDS ORDERED: LET GEL TOPICAL 1 EA SYR TP ONE (09:36)
[2018-05-21 10:11] LABS: PLATELET COUNT 324 10^3/uL (150-400)
[2018-05-21 10:27] LABS: CREATINE KINASE 97 IU/L (0-156)
[2018-05-21] MEDS ORDERED: CYCLOBENZAPRINE 10 MG TAB PO ONE (11:08)
[2018-05-21] MEDS ORDERED: OXYCODONE/APAP 5/325 TAB PO ONE (11:08)
[2018-05-21] MEDS ORDERED: TDAP ADULT 0.5 ML INJ (BOOSTRIX) IM ONE (11:14)
[2018-05-21 11:47] VITALS: BP 126/82
== END 2018-05-21 11:56 | disposition home or self-care (01) ==
LOC: EDUNIT# → SUPCPDRO 09:10
DX: G40.909 Epilepsy, unspecified, not intractable, without status epilepticus (principal); S46.912A Strain of unspecified muscle, fascia and tendon at shoulder and upper arm level, left arm, initial encounter; S39.012A Strain of muscle, fascia and tendon of lower back, initial encounter; S50.812A Abrasion of left forearm, initial encounter; S00.81XA Abrasion of other part of head, initial encounter; R40.2411 Glasgow coma scale score 13-15, in the field [EMT or ambulance]; E86.9 Volume depletion, unspecified; W19.XXXA Unspecified fall, initial encounter; Y92.481 Parking lot as the place of occurrence of the external cause; Y99.8 Other external cause status; M51.36 Other intervertebral disc degeneration, lumbar region; G43.909 Migraine, unspecified, not intractable, without status migrainosus; Z23 Encounter for immunization
CPT/HCPCS: 84484-PO; 96374; J2060

== ENCOUNTER 2018-11-17 21:21 | Inpatient (IN) | payer BC ==
[2018-11-17] MEDS ORDERED: NS 1,000 ML IV ONE (21:57)
--- NOTE | 2018-11-17 22:02 | EDPHY ---
H & P Stated Complaint: Generalized joint pain and swelling, generalized unwell. Source: Patient - Personal History Current Tetanus/Diphtheria Vaccine: Yes Current Tetanus Diphtheria and Acellular Pertussis (TDAP): Yes Tetanus Vaccine Date: 2017 - Medical/Surgical History Hx Asthma: Yes Hx Chronic Respiratory Disease: No Hx Diabetes: No Hx Cardiac Disease: No Hx Renal Disease: No Hx Cirrhosis: No Hx Alcoholism: No Hx HIV/AIDS: No Hx Splenectomy or Spleen Trauma: No Other PMH: Migraines, asthma as a child, hysterectomy, bilateral carpal tunnel, bursitis both shoulders, x2, planar fascitits, R knee ACL, ADHD, chronic muscle pain, seizure disorder unknown eitolgy. - Social History Smoking Status: Never smoked Time Seen by Provider: 11/17/18 21:24 HPI/ROS: CHIEF COMPLAINT: Joint pain and swelling and fever History by patient HISTORY OF PRESENT ILLNESS: 38-year-old woman with a history of seizure and migraines presents complaining of 24 hr of a achy joints in her upper limbs and swelling in her arms and face. Patient has general malaise and had a temperature of 99.9 at home. She has been taking Tylenol and ibuprofen around the clock because she does not feel well with minimal relief. Last was a few hours ago. She tried taking Benadryl last night and today because of the swelling and redness in her limbs. She says she often gets "red and blotchy when she is in pain". She denies any itching. Patient had a tattoo on her right upper arm 5 days ago. She denies any recent change in medications. She had a seizure about a week ago when she was in [place] because her father . She does not smoke. She rarely uses alcohol. She denies illicit injection drug use. She uses regular Toradol and DHE for her migraine headaches. REVIEW OF SYSTEMS: As in HPI, and all other systems reviewed and are negative (Madelyn Riley) - Physical Exam Exam: General Appearance: Alert, morbidly obese, hyperventilating Head: normocephalic, atraumatic Eyes: Pupils equal and round, reactive to light, no pallor or injection. Mouth: Mucous membranes moist. Oropharynx clear Neck: No bony tenderness, full range of motion Respiratory: Increased effort, lungs are clear to auscultation. No wheezes, rales or rhonchi. Cardiovascular: Rapid Regular rate and rhythm. S1, S2, no murmurs, gallops or rubs appreciated Gastrointestinal: Abdomen is soft and nontender, no masses, bowel sounds normal. Back: No CVA tenderness, no bony tenderness Neurological: Awake, alert and oriented x 3, cranial nerves 2-12 intact, no pronator drift, normal gait, Skin: Warm and dry, face and arms diffusely red and swollen. Positive healing hand print shaped tattoo to right upper arm with diffuse mild erythema and warmth of the entire arm, there is no purulent drainage or localized tenderness or crepitus. Radial pulses 2+ and equal to the left. Patient's left arm is also red and swollen, to a lesser extent.. Musculoskeletal: No deformities. Lower Extremities: full range of motion, DP2+ bilat, no edema Psychiatric: Patient has normal affect, there is no agitation. (Madelyn Riley) Constitutional: Initial Vital Signs Temperature (C) 36.9 C 11/17/18 21:29 Heart Rate 121 H 11/17/18 21:29 Respiratory Rate 22 H 11/17/18 21:29 Blood Pressure 134/86 H 11/17/18 21:29 O2 Sat (%) 96 11/17/18 21:29 O2 Delivery Mode Room Air Allergies/Adverse Reactions: codeine [Codeine] Allergy (Severe, Verified 05/21/18 10:28) Abdominal Pain metoclopramide HCl [From Reglan] Allergy (Severe, Verified 05/21/18 10:28) RESTLESSNESS daptomycin [Daptomycin] Allergy (Intermediate, Verified 05/21/18 10:28) Rash prochlorperazine edisylate [From Compazine] Allergy (Mild, Verified 05/21/18 10: 28) RESTLESSNESS prochlorperazine maleate [From Compazine] Allergy (Mild, Verified 05/21/18 10:28 ) RESTLESSNESS Sulfa (Sulfonamide Antibiotics) Allergy (Mild, Verified 11/17/18 21:24) Rash pregabalin [From Lyrica] Allergy (Unknown, Verified 11/17/18 21:24) Rash sumatriptan Allergy (Unknown, Verified 11/17/18 21:24) Rash Home Medications: Medication Instructions Recorded Dihydroergotamine Mesylate [Dhe] 1 mg IM DAILY PRN 06/26/13 Topiramate [Topamax 100MG (*)] 200 mg PO BID 06/26/13 Ketorolac Tromethamine [Toradol 15 15 mg IM DAILY PRN 01/30/14 mg/ml Inj (*)] Dextroamphetamine/Amphetamine 15 mg PO MOTUWETHFR 06/18/16 [Adderall Xr 15 mg Capsule] Phentermine HCl [Adipex-P] 37.5 mg PO DAILY 05/30/17 Cyclobenzaprine [Flexeril 10 MG 10 mg PO TID PRN #15 tab 05/21/18 (*)] Esomeprazole Mag Trihydrate 40 mg PO DAILY 11/18/18 [Nexium] Mirtazapine [Remeron] 30 mg PO HS 11/18/18 Promethazine HCl [Phenergan 25mg 50 mg PO HS 11/18/18 (*)] Ranitidine HCl [Zantac] 300 mg PO BID 11/18/18 tiZANidine HCL [Zanaflex 2MG (*)] 4 mg PO TID PRN 11/18/18 Acetaminophen [Tylenol 325mg (*)] 650 mg PO Q4HRS PRN tab 11/19/18 methylPREDNISolone [Medrol Dose 4 mg PO AD #1 ea 11/19/18 Og] oxyCODONE HCL/ACETAMINOPHEN 1 each PO Q6 #10 tablet 11/19/18 [Percocet 5-325 mg Tablet] Medical Decision Making - Diagnostics EKG Interpretation: EKG: Interpreted by me contemporaneously. Rhythm: Normal sinus rhythm. Heart rate 111 QTc 49 QRS: normal STT segment: normal T Waves: Diffuse flattening in all leads both anterior laterally as well as inferiorly and record early Q waves none Summary: Normal sinus rhythm with diffuse nonspecific with prolonged QTC at 489 (Bobby Moreno) ED Course/Re-evaluation: 38-year-old woman presents with myalgias, malaise and right greater than left arm redness and swelling in the setting of a new tattoo. I was somewhat concerned about infection of the arm. Labs were obtained including lactate because she mets SIRS criteria. Patient's white blood cell count was within normal limits but her lactate was elevated. She was given a L of normal saline started on empiric broad-spectrum antibiotics antibiotics including ertapenem and vancomycin and to cover her for MRSA given that she has a history of MRSA and this is a skin infection. Patient's heart rate improved with fluids, though she remained tachycardic. Her blood pressure remained stable. I discussed the case with the hospitalist advanced solutions architect, Dr. Rowe. Patient be transferred to [facility] for further evaluation and treatment. Total critical care time was 35 min exclusive of procedures. (Madelyn Riley) - Data Points Medications Given: Discontinued Medications Hydrocodone Bitart/Acetaminophen ([place] 5/325) 1 - 2 tab PO Q4HRS PRN PRN Reason: Pain, Moderate Able to Take PO Stop: 11/27/18 23:33 Last Admin: 11/19/18 08:55 Dose: 2 tab Cyclobenzaprine HCl (Flexeril) 10 mg PO TID PRN PRN Reason: Spasms Stop: 05/17/19 13:43 Last Admin: 11/19/18 08:55 Dose: 10 mg Diphenhydramine HCl (Benadryl Injection) 50 mg IVP EDNOW ONE Stop: 11/17/18 23:43 Last Admin: 11/17/18 23:55 Dose: 50 mg Diphenhydramine HCl (Benadryl) 25 - 50 mg PO Q6HRS PRN PRN Reason: Itching Stop: 05/16/19 23:33 Last Admin: 11/19/18 10:39 Dose: 50 mg Enoxaparin Sodium (Lovenox) 60 mg SC BID PEREZ Stop: 05/17/19 13:59 Last Admin: 11/19/18 08:55 Dose: 60 mg Famotidine (Pepcid) 20 mg PO BID PEREZ Stop: 05/17/19 20:59 Last Admin: 11/19/18 08:55 Dose: 20 mg Hydromorphone HCl (Dilaudid) 0.5 mg IVP EDNOW ONE Stop: 11/17/18 23:43 Last Admin: 11/17/18 23:55 Dose: 0.5 mg Sodium Chloride (Ns) 1,000 mls @ 0 mls/hr IV ONCE ONE; Wide Open PRN Reason: Protocol Stop: 11/17/18 21:58 Last Admin: 11/17/18 22:26 Dose: 1,000 mls Ertapenem 1 gm/ Sodium (Chloride) 100 mls @ 200 mls/hr IV EDNOW ONE PRN Reason: Protocol Stop: 11/17/18 23:10 Last Admin: 11/17/18 23:23 Dose: 100 mls Vancomycin HCl 1 gm/ Sodium (Chloride) 250 mls @ 250 mls/hr IV EDNOW ONE PRN Reason: Protocol Stop: 11/17/18 23:39 Last Admin: 11/17/18 23:55 Dose: 250 mls Sodium Chloride (Ns) 1,000 mls @ 100 mls/hr IV CONT PEREZ Stop: 11/18/18 09:44 Last Admin: 11/18/18 02:08 Dose: 1,000 mls Sodium Chloride (Ns) 3,500 mls @ 7,000 mls/hr 30 ml/kg infuse over 30 min ( 3500 ml) IV EDNOW ONE PRN Reason: Protocol Stop: 11/18/18 00:35 Last Admin: 11/17/18 23:45 Dose: 3,500 mls Vancomycin HCl 1.25 gm/ Sodium (Chloride) 250 mls @ 166.667 mls/hr IV Q8H PEREZ Stop: 12/18/18 07:59 Last Admin: 11/18/18 08:09 Dose: 250 mls Cefazolin Sodium/Dextrose (Ancef) 100 mls @ 200 mls/hr IV Q8HRS PEREZ PRN Reason: Protocol Stop: 12/18/18 09:59 Last Admin: 11/18/18 15:26 Dose: Not Given Cefazolin Sodium/Dextrose (Ancef) 100 mls @ 200 mls/hr IV Q8H PEREZ PRN Reason: Protocol Stop: 12/18/18 19:59 Last Admin: 11/19/18 11:34 Dose: Not Given Ketorolac Tromethamine (Toradol) 15 mg IVP EDNOW ONE Stop: 11/17/18 22:06 Last Admin: 11/17/18 22:26 Dose: 15 mg Lorazepam (Ativan) 0.5 - 1 mg PO Q8HRS PRN PRN Reason: Anxiety, Able to Take PO Stop: 05/16/19 23:33 Last Admin: 11/18/18 13:27 Dose: 0.5 mg Mirtazapine (Remeron) 30 mg PO HS PEREZ Stop: 05/17/19 20:59 Last Admin: 11/18/18 20:36 Dose: 30 mg Miscellaneous Medication (Dextroamphetamine/Amphetamine [Adderall Xr 15 Mg Capsule]) 15 mg PO MOTUWETHFR [facility] Stop: 05/17/19 13:44 Last Admin: 11/19/18 13:39 Dose: Not Given Miscellaneous Medication (Phentermine Hcl [Adipex-P]) 37.5 mg PO DAILY [facility] Stop: 05/18/19 08:59 Last Admin: 11/19/18 09:03 Dose: Not Given Morphine Sulfate (Morphine) 2 - 4 mg IVP Q3HRS PRN PRN Reason: Pain, Breakthrough Stop: 11/28/18 03:52 Last Admin: 11/18/18 13:27 Dose: 2 mg Ondansetron HCl (Zofran Odt) 4 mg PO Q4HRS PRN PRN Reason: Nausea/Vomiting, Use 1st Stop: 05/16/19 23:33 Last Admin: 11/19/18 11:24 Dose: 4 mg Ondansetron HCl (Zofran) 4 mg IVP EDNOW ONE Stop: 11/18/18 00:27 Last Admin: 11/18/18 01:20 Dose: Not Given Pantoprazole Sodium (Protonix) 40 mg PO DAILY [facility] Stop: 05/18/19 08:59 Last Admin: 11/19/18 08:55 Dose: 40 mg Promethazine HCl (Phenergan) 12.5 mg IVP EDNOW ONE Stop: 11/18/18 00:42 Last Admin: 11/18/18 00:44 Dose: 12.5 mg Promethazine HCl (Phenergan) 50 mg PO HS [facility] Stop: 05/17/19 20:59 Last Admin: 11/18/18 20:36 Dose: 50 mg Topiramate (Topamax) 200 mg PO BID [facility] Stop: 05/17/19 20:59 Last Admin: 11/19/18 08:55 Dose: 200 mg Point of Care Test Results: CBC CBC Collection Date 11/17/18 CBC Collection Time 22:25 WBC 5.85 RBC 4.29 HGB 12 HCT 37.2 PLT 270 Neut # 2.76 Neut 47.1 LYMPH # 2.55 LYMPH 43.6 MCV 86.7 Chemistry 11/17/18 22:35 POC Sodium 139 mEq/L mEq/L (135-145) POC Potassium 3.5 mEq/L mEq/L (3.3-5.0) POC Chloride 105.0 mEq/L mEq/L (97-110) POC Total CO2 22 mEq/L mEq/L (22-31) POC BUN 13 mg/dL mg/dL (7-23) POC Creatinine 0.8 mg/dL mg/dL (0.6-1.0) POC Glucose 232 mg/dL H mg/dL (70-100) POC Calcium 9.0 mg/dL mg/dL (8.5-10.4) Blood Gas/Lactic Acid-Venous 11/17/18 22:33 POC Lactic Acid Rusty 2.6 mmol/L H mmol/L (0.7-2.1) Influenza PCR Flu Nasal Swab Collection Date 11/17/18 Flu Nasal Swab Collection Time 21:10 Departure - Departure Disposition: [facility] Inpatient Acute Clinical Impression: Cellulitis of right upper extremity Sepsis Qualifiers: Sepsis type: sepsis due to unspecified organism Qualified Code(s): A41.9 - Sepsis, unspecified organism Clinical Impression: (Ruled Out): Cellulitis of right upper arm Condition: Good
[2018-11-17] MEDS ORDERED: KETOROLAC 15 MG/1 ML SDV IVP ONE (22:05)
[2018-11-17] MEDS ORDERED: ERTAPENEM 1 GM VIAL ONE (22:39)
[2018-11-17] MEDS ORDERED: VANCOMYCIN 1 GM in NS 250 ML IV ONE (22:40)
[2018-11-17] MEDS ORDERED: ERTAPENEM 1 GM in NS 100 ML IV ONE (22:41)
[2018-11-17] MEDS ORDERED: ONDANSETRON DISINTEGRATING 4 MG TAB PO PRN (23:34)
[2018-11-17] MEDS ORDERED: LORazepam 0.5 MG TAB PO PRN (23:34)
[2018-11-17] MEDS ORDERED: ACETAMINOPHEN 325 MG TAB PO PRN (23:34)
[2018-11-17] MEDS ORDERED: ONDANSETRON 4 MG/2 ML VIAL IVP PRN (23:34)
[2018-11-17] MEDS ORDERED: HYDROmorphONE/DILAUDID 1 MG/ML INJ IVP ONE (23:42)
[2018-11-17] MEDS ORDERED: NS 1,000 ML IV SCH (23:45)
[2018-11-18] MEDS ORDERED: NS 3,500 ML IV ONE (00:06)
[2018-11-18] MEDS ORDERED: ONDANSETRON 4 MG/2 ML VIAL IVP ONE (00:26)
[2018-11-18] MEDS ORDERED: PROMETHAZINE HCL 25 MG/ML INJ IVP ONE (00:41)
[2018-11-18] MEDS: HYDROCODONE/APAP 5/325 TAB PO PRN ×5 (01:53→22:32)
[2018-11-18 02:31] LABS: PLATELET COUNT 263 10^3/uL (150-400)
--- NOTE | 2018-11-18 05:51 | GHP ---
[f rep st] HISTORY AND PHYSICAL DATE OF ADMISSION: 11/17/2018 SOURCE: Patient provides history, appears reliable. EMR was reviewed and case discussed with ED pro vider. CHIEF COMPLAINT: Fevers, joint pain, right arm pain, swelling. HISTORY OF PRESENT ILLNESS: This is a very pleasant 38-year-old female with a past medical history s ignificant for migraine headaches, seizure disorder, chronic muscle pain, childhood asthma, history o f MRSA related skin infection, who presents to the emergency department today with complaints of feve rs, myalgias and joint pain. The patient notes right arm pain and swelling. She reports that she un derwent a tattoo 5 days ago on her right arm and a touch up over her right shoulder blade. She repor ts some nausea. No vomiting, fevers, chills, sweats. She also notes some numbness, tingling she fee ls secondary to the swelling in her right arm. Patient states she has never had such a significant c ellulitis, but she has in the past required I and D's for abscesses. She does not have any history o f IV drug use. REVIEW OF SYSTEMS: Ten systems reviewed, negative except as noted above. ALLERGIES: Codeine, patient develops GI upset. Compazine, metoclopramide, daptomycin, patient repor ts she develops an itchy rash. Vancomycin, patient reports she develops red man syndrome. Sulfa, Ly thomas, sumatriptan. PAST MEDICAL HISTORY: Significant for migraine headache, asthma in childhood, bilateral shoulder bur sitis, chronic muscle pain, seizure disorder with last seizure a week ago, history of MRSA. PAST SURGICAL HISTORY: Significant for x2, hysterectomy, bilateral carpal tunnel release, right ACL repair, multiple I and Ds, last in 2008. FAMILY HISTORY: Patient denies any diabetes, cardiac disease or skin disorders. SOCIAL HISTORY: Patient is , lives with her family. She does not utilize any tobacco. Rare alcohol intake. No illicit drugs reported. No IV drugs. CODE STATUS: Full. PHYSICAL EXAMINATION: VITAL SIGNS: Upon arrival to the emergency department, blood pressure is 134/ 86, heart rate is 121, respiratory rate 22, O2 saturation 96% on room air, and temperature 36.9. Vit als currently available: Blood pressure is 127/90, heart rate 111, respiratory rate 18, O2 saturatio n 95% on room air, temperature 37.0. GENERAL: Patient without any acute distress. She is lying cecil te still in her bed with her right arm elevated. She does appear fatigued, acutely ill, but nontoxic . She is flushed, pleasant, awake and cooperative. HEAD: Normocephalic, atraumatic. Patient does have a small area of induration on the right posterior lower scalp. No drainage. NECK: Supple. Tr achea midline. Excessive soft tissues present. CV: Tachycardic. Slightly distant heart sounds due to body habitus. Regular rate and rhythm. Unable to assess murmurs due to tachycardia and obesity. RESPIRATORY: Lungs are clear to auscultation bilaterally. No wheezes, rales, or rhonchi appreciat ed. ABDOMEN: Obese, soft, nontender to palpation. No rebound, guarding or masses appreciated. : No suprapubic tenderness to palpation. No Albarado catheter in place. MUSCULOSKELETAL: Patient move s all extremities, sits up independently. Strength grossly normal. SKIN: Patient with multiple tat toos on her arm and her upper back. The right upper arm with reported freshly created tattoo. Patie nt with erythema, tenderness and induration without any fluctuance in her right upper extremity. It is tender to palpation. No apparent open sores, but patient does have significant erythema surroundi ng her tattoo. NEURO: Grossly nonfocal. No facial drooping. Moves all extremities. Sensation int act. PSYCH: Patient is quite anxious, but she is pleasant and cooperative. LABORATORY STUDIES: WBC 5.85, H and H are 10.9 and 34.4, MCV of 88.7, platelet count is 263. Lactic acid repeated is 1.7, initial was 2.6. Point of care sodium is 139, potassium is 3.5, chloride is 1 05, CO2 is 22, BUN is 13, creatinine 0.8, glucose is 232, and calcium is 9.0. Repeated BMP upon arri adam to the hospital: Sodium is 138, potassium 4.6, chloride is 113, CO2 is 19, anion gap 6, BUN 13, creatinine 0.5, GFR greater than 60, glucose is 145, calcium 7.8. EKG was reviewed myself showing sinus tachycardia in the 110s, low voltage, nonspecific T-wave change s in the anterolateral leads with some T-wave flattening in all leads. QTc is 489. No acute ST elev ations. ASSESSMENT AND PLAN: 38-year-old female with history of seizure disorder, migraines, asthma, chronic pain, who presents to the emergency department with complaints of fevers, joint pain, and right uppe r extremity swelling and redness. 1. Right arm cellulitis suspect is secondary to her recent tattooing. Patient received vancomycin a nd a dose of ertapenem in the emergency department. She does report an adverse reaction to daptomyci n, potential allergy. Also, she reports developing red man syndrome with vancomycin dosing, usually pretreated with Benadryl; however, patient is complaining of itching diffusely, particularly in her h ands on both sides. We will continue the vancomycin for now after discussion with the patient. We w ill pretreat with Benadryl. We will request Infectious Disease consultation to assist with any addit ional recommendations. She does have a history of methicillin-resistant Staphylococcus aureus in the past with multiple incisions and drainages, but last has been about 10 years ago. 2. Severe sepsis. Patient qualifies with the elevated lactate, tachycardia, tachypnea. Lactate has normalized status post intravenous fluid bolus. Blood cultures were not obtainable due to patient's significant difficult access, which she reports has typically required a PICC line. We will try to avoid any central access. Consider a Midline in the morning. Patient continues to be tachycardic, b ut also complains of pain. 3. Acute pain and swelling. Patient reports an adverse reaction to codeine with intractable nausea and vomiting, but she is able to tolerate all other narcotics. Floweree will be available p.r.n. [place] te extremity. Ice p.r.n. 4. Anemia suspect due to chronic disease. No previous lab work for comparison, however. No evidenc e of active bleeding. Will monitor CBCs. 5. Hyperglycemia. No previous history of diabetes. She has been nonfasting. Will recheck in the m orning. If continues to rise, patient may require insulin sliding scale. 6. Hypocalcemia. We will check an albumin to see if this corrects. 7. Seizure disorder. Continue patient's home medications once med rec is completed. 8. Morbid obesity. BMI of 54.2. 9. Chronic pain. Supportive care as above. 10. Fluid, electrolyte, nutrition. IV fluids for additional liter given setting of tachycardia, but she is tolerating p.o., so will encourage. Electrolytes are adequate at this time, replace if neede d. 11. Prophylaxis. Sequential compression devices as tolerated. Lovenox if patient should stay an ad ditional day. 12. Cor status is full. 13. Disposition: Patient admitted to inpatient status on the med/surg floor given the extensive howard ure of her cellulitis. Anticipate greater than 2 midnight stay for IV antibiotics. /[id number]/MODL
--- NOTE | 2018-11-18 07:11 | PDMN ---
Medical Necessity Medical necessity: Pt meets inpt criteria per MD order and MCG M-70, Cellulitis , A-2 days. 38 y/o w/hx seizure disorder, migraines, asthma, morbid obesity w/ BMI of 54.2, and chronic pain, presented to ED w/fever, joint pain, and RUE swelling and redness, admitted w/RUE cellulitis sec to recent tattooing and sepsis as evidenced by elev lactate, tachycardia, and tachypnea. Pt has hx MRSA infections w/mult I&D's in past (last one being 10 yrs ago), ID consult pending , IVF, IV ABX's, pain management. Anticipate>2MN given clinical presentation/ extensive nature of cellulitis.
[2018-11-18] MEDS ORDERED: VANCOMYCIN 1.25 GM in NS 250 ML IV SCH (08:00)
[2018-11-18] MEDS: diphenhydrAMINE 25 MG CAP PO PRN (08:08)
--- NOTE | 2018-11-18 11:33 | GCON ---
[f rep st] CONSULTATION INFECTIOUS DISEASE CONSULTATION DATE OF CONSULTATION: 11/18/2018 REFERRING PHYSICIAN: Gail Rowe MD REASON FOR CONSULTATION: Right upper extremity cellulitis. 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 The patient describes having a tattoo performed on the ri t upper extremity approximately 1 week ago as well as some re-working of a tattoo over the right oulder. Over the last several days, she complains of having low-grade temperature without any fever greater than 100 degrees with associated diffuse myalgia and arthralgia. The patient describes that she initially had right upper extremity swelling in the region of the tattoo that spread to her forea rm and hand. This was subsequently followed by development of left upper extremity pain and swelling affecting the elbow and hand. She initially could not make a fist. She also describes having pain in the lower extremities bilaterally as well. She has had associated nausea without vomiting or diar kris. She does describe having shaking chills and night sweats. She has had no prior reactions to t attoo pigment. She does describe having some concomitant oral ulcerations. No vaginal ulcerations. No recent diarrheal illness. The patient did travel to [place] recently. She was not in the [facility] region of the [facility]. She does describe having a small irritated area of skin in the posteri or scalp region. No prior history of gout. No prior history of similar symptoms. The patient was s een with the above complaints yesterday in the emergency department where she was noted to have a nor mal white blood cell count without left shift. She does have pet dogs and cats at home and notes juana e scratches intermittently from her cats. The patient was started empirically on vancomycin as well as given a single dose of ertapenem in the emergency department. Based on the above findings, I am n ow asked to assist in her ongoing management. PAST MEDICAL HISTORY: MRSA skin and soft tissue infection with last episode being 10 years ago, obes ity, depression, seizure disorder, migraines, asthma. PAST SURGICAL HISTORY: x2, hysterectomy, carpal tunnel bilaterally, right shoulder arthros copy. CURRENT MEDICATIONS: Vancomycin 1.25 g IV q.8 hours, Wyatt as needed for pain, morphine as needed fo r pain, Ativan as needed for anxiety. ALLERGIES: Sulfonamides associated with chest rash, daptomycin associated with hives over her hands, vancomycin associated with red man syndrome but tolerates with Benadryl, Raglan, Lyrica associated w ith rash, sumatriptan associated with rash. SOCIAL HISTORY: Patient does not smoke. She rarely drinks alcohol. No drug use. Pet cats and dogs as outlined above. Travel to [place] as outlined above. FAMILY HISTORY: Hypertension; grandmother with rheumatoid arthritis. REVIEW OF SYSTEMS: Outside that noted in the HPI, remainder of 10-system review is unremarkable. PHYSICAL EXAMINATION: VITAL SIGNS: Temperature 36.5, heart rate 98, respiratory rate 18, blood pres sure 116/78, oxygen saturation 92% on room air. GENERAL: Patient is morbidly obese, in mild distres s due to pain. She appears nontoxic. HEENT: There is no scleral icterus, conjunctival injection, o r conjunctival petechiae. Oropharynx shows moist mucous membranes. No ulcerations noted. No thrush noted. No tenderness over the sinuses. No nasal discharge. NECK: Supple without lymphadenopathy or palpable thyromegaly. CHEST: Clear to auscultation bilaterally without adventitious sounds. Res piratory effort is normal. CARDIOVASCULAR: Regular rate and rhythm without murmurs, gallops, or rub s. ABDOMEN: Obese, nontender, nondistended. Difficult to assess for organomegaly based on body hab itus. MUSCULOSKELETAL: There is edema present over the right upper and left upper extremity; there is erythema over the right upper extremity over the deltoid region adjacent to the patient's tattoo a nd extending onto the forearm; similar erythema is present on the left upper extremity, although less prominent. The area on the right upper extremity is mildly warm and tender to palpation. There is swelling of the wrist and digits of both hands. There is no swelling in the knees or ankles. SKIN: Recent tattoo over the right deltoid region with black tattoo pigment; no significant erythema over tattoo margins; tattoo over the right posterior shoulder with mild erythema below tattoo margin; ivonne ral other tattoos also present. No stigmata of endocarditis. There is a resolving pustule over the left posterior scalp. NEUROLOGIC: Patient is alert and interacts appropriately with examiner. Cran ial nerves 2-12 are grossly intact. Sensation is grossly intact. Muscle tone and bulk are normal. LYMPHATICS: No cervical or supraclavicular nodes. LABORATORY DATA: White blood cell count 5.8, hematocrit 34.4, platelets 263, neutrophils 45%, lympho cytes 44%, eosinophils 2.7%. Serum creatinine is 0.5, albumin 2.9, glucose 145, venous lactate 2.6 w ith repeat of 1.7. Urinalysis shows 25-50 white blood cells with 1-3 red blood cells, protein negati ve, glucose 1+, blood cultures x2 sets are pending. IMPRESSION: Fever, bilateral upper extremity erythema, and diffuse arthralgias after recent tattoo: Erythema over right upper extremity could be compatible with cellulitis after tattoo, although patie nt does not have some similar erythema over the left upper extremity were no tattooing was performed. Normal white blood cell count without left shift is unusual for cellulitis. In the setting of diff use joint pain as well as joint swelling of both hands and wrists, other considerations would include a hypersensitivity response to recent tattoo pigment, although this is typically more localized vers us underlying autoimmune disease with consideration for entity such as lupus or rheumatoid arthritis. Polyarticular gout could also present similarly, although no preceding history. Doubt current find ings associated with cat scratch disease. RECOMMENDATIONS: 1. Ancef 2 g IV q.8 hours given no pustular component to skin findings, and history of MRSA is remot e. 2. Discontinue vancomycin. 3. Check C-reactive protein. 4. Check VILLA and rheumatoid factor. 5. Check uric acid level. 6. Follow up blood cultures as available. Thank you for this consultation. We will continue to follow the patient with you. /[id number]/MODL
[2018-11-18] MEDS: ceFAZolin 2 GM/DEXTROSE 100 ML IV SCH ×3 (11:41→20:35)
[2018-11-18] MEDS ORDERED: DIHYDROERGOTAMINE 1 MG/ML AMP IM PRN (13:44)
[2018-11-18] MEDS ORDERED: tiZANidine HCL 2 MG TAB PO PRN (13:44)
[2018-11-18] MEDS ORDERED: CYCLOBENZAPRINE 10 MG TAB PO PRN (13:44)
--- NOTE | 2018-11-18 13:56 | HOSPPROG ---
Hospitalist Progress Note Assessment/Plan: 38 Year old female presents emergency room with complaints of right upper extremity swelling. 1st encounter, chart reviewed Discussed with Dr. Johnson # bilateral upper extremity erythema -etiology unclear -continue IV Ancef -appreciate ID consult -had recent right upper extremity tattoo # severe sepsis -resolved # acute pain and swelling -continue supportive care # hyperglycemia - stable #Anemia -chronic disease #Morbid obesity #Dispo -unclear -etiology of symptoms not clear -cont supportive care -await results Subjective: Still feeling ill. Not better. Objective: Vital Signs Temp Pulse Resp BP Pulse Ox 36.7 C 104 H 20 112/77 90 L 11/18/18 10:44 11/18/18 10:44 11/18/18 10:44 11/18/18 10:44 11/18/18 10:44 Laboratory Results 11/18/18 02:00 11/18/18 02:14 11/17/18 11/18/18 11/19/18 05:59 05:59 05:59 Intake Total 1700 450 Output Total 400 Balance 1300 450 - Physical Exam Constitutional: appears nourished, obese, uncomfortable Eyes: PERRL, anicteric sclera, EOMI Ears, Nose, Mouth, Throat: moist mucous membranes, hearing normal, ears appear normal Cardiovascular: tachycardia, edema, No systolic murmur, No JVD Respiratory: no respiratory distress, no rales or rhonchi, reduced air movement Gastrointestinal: normoactive bowel sounds, No tenderness, No ascites Skin: warm, erythema, No induration Musculoskeletal: normal joint ROM, no joint effusions, generalized weakness Neurologic: AAOx3 Psychiatric: interacting appropriately, not encephalopathic, thought process linear ICD10 Worksheet Patient Problems: Problems Problem Status Onset Infection of left foot Acute Dehydration Acute Otitis externa Acute Cellulitis of right upper extremity Acute Sepsis Acute
[2018-11-18] MEDS: AMPHETAMINE PO SCH (15:15)
[2018-11-18] MEDS: ENOXAPARIN 60 MG/0.6 ML SYR SC SCH ×2 (15:15→20:36)
[2018-11-18] MEDS: DEXTROAMPHETAMINE PO SCH (15:15)
[2018-11-18] MEDS: TOPIRAMATE 100 MG TAB PO SCH (20:36)
[2018-11-18] MEDS: FAMOTIDINE 20 MG TAB PO SCH (20:36)
[2018-11-18] MEDS ORDERED: PROMETHAZINE HCL 25 MG TAB PO SCH (21:00)
[2018-11-18] MEDS ORDERED: MIRTAZAPINE 30 MG TAB PO SCH (21:00)
[2018-11-19] MEDS: ceFAZolin 2 GM/DEXTROSE 100 ML IV SCH ×3 (04:33→11:34)
--- NOTE | 2018-11-19 05:05 | CPEKG ---
Test Reason : OPEN Blood Pressure : / mmHG Vent. Rate : 111 BPM Atrial Rate : 111 BPM P-R Int : 166 ms QRS Dur : 073 ms QT Int : 360 ms P-R-T Axes : 051 026 000 degrees QTc Int : 489 ms Sinus tachycardia Low voltage, precordial leads Nonspecific T abnrm, anterolateral leads as well diffusely with anterolateral flat T waves. Borderline prolonged QT interval Confirmed by Bobby Moreno ([id number]) on 11/19/2018 5:04:53 AM Referred By: Gail Rowe Confirmed By:Bobby Moreno
[2018-11-19] MEDS: HYDROCODONE/APAP 5/325 TAB PO PRN (08:55)
[2018-11-19] MEDS: FAMOTIDINE 20 MG TAB PO SCH (08:55)
[2018-11-19] MEDS: TOPIRAMATE 100 MG TAB PO SCH (08:55)
[2018-11-19] MEDS: ENOXAPARIN 60 MG/0.6 ML SYR SC SCH (08:55)
[2018-11-19] MEDS ORDERED: (Phentermine Hcl [Adipex-P] 37.5 MG) PO SCH (09:00)
[2018-11-19] MEDS ORDERED: PANTOPRAZOLE SODIUM 40 MG TAB PO SCH (09:00)
[2018-11-19] MEDS: diphenhydrAMINE 25 MG CAP PO PRN (10:39)
[2018-11-19 11:26] VITALS: BP 127/83
--- NOTE | 2018-11-19 11:41 | PCMIDPN ---
Assessment/Plan: Assessment/Plan: * Fever, rash and arthralgias: Clinically improved today with residual erythema over both right and left upper extremities which is similar to that from yesterday. Joint pain and swelling less prominent. Blood cultures remain negative. Given bilateral nature of erythema, do not think secondary to cellulitis. Query if this may be hypersensitivity response to tattoo ink or if she may have underlying autoimmune disease as she describes similar episodes in the past which have responded to Medrol Dosepak. Will discontinue antibiotics and treat with Medrol Dosepak. Recommend she discuss rheumatologic evaluation with her primary care provider on follow-up. Advised to notify me if she has recurrent fever or worsening redness after hospital discharge. 11/19/18 11:38 Subjective: Patient feels better today with decreasing joint pain and swelling. Redness over both arms largely unchanged. Objective: Vital Signs Temp Pulse Resp BP Pulse Ox 36.7 C 96 16 127/83 H 93 11/19/18 11:24 11/19/18 11:24 11/19/18 11:24 11/19/18 11:24 11/19/18 11:24 Laboratory Results 11/18/18 02:00 11/18/18 02:14 11/18/18 11/19/18 11/20/18 05:59 05:59 05:59 Intake Total 1700 450 Output Total 400 Balance 1300 450 C-Reactive Protein 27.2 mg/L (<10.0) H 11/18/18 02:14 Cefazolin # 2 Blood cultures x2 no growth Laboratory Tests 11/18/18 02:14 C-Reactive Protein 27.2 H Rheum Factor Semi-Quant < 8.6 - Physical Exam General Appearance: alert, no apparent distress, non-toxic EENT: No scleral icterus, No thrush Respiratory: lungs clear, No respiratory distress Cardiac/Chest: regular rate, rhythm Extremities: inflammation (Less prominent wrist and hand swelling bilaterally with improved range of motion) Abdomen: non-tender, No distended Skin: rash (Erythema over bilateral upper extremities involving deltoid region and lateral forearm), No embolic lesions ICD10 Worksheet Patient Problems: Problems Problem Status Onset Cellulitis of right upper extremity Acute Sepsis Acute Dehydration Acute Infection of left foot Acute Otitis externa Acute
[2018-11-19] MEDS: DEXTROAMPHETAMINE PO SCH (13:39)
[2018-11-19] MEDS: AMPHETAMINE PO SCH (13:39)
--- NOTE | 2018-11-19 14:55 | ASMTLACE ---
[facility] Length of stay for Answers: 2 days current admission Acuity / Level of Answers: Yes Care: Did the patient have an inpatient admission? Comorbidities - select Answers: Opioid dependence all that apply / Chronic pain Other Notes: Seizure disorder # of Emergency department Answers: 1-2 visits in the last 6 months Score: 11 Date Signed: 11/19/2018 02:54 PM Electronically Signed By:Adeline Murguia RN
--- NOTE | 2018-11-19 19:04 | GDS ---
[f rep st] DISCHARGE SUMMARY DISCHARGE DIAGNOSIS: Fever, rash with arthralgias. CONSULTATIONS: Infectious Disease. PHYSICAL EXAMINATION: GENERAL: The patient is alert. VITAL SIGNS: Afebrile at 36.7, pulse 96, res piratory rate 16, blood pressure is 127/83. She is saturating 93% on room air. I have seen and eval uated the patient on the day of discharge. HOSPITAL COURSE: The patient is a 38-year-old female who presented to the emergency room with compla ints of joint pain and increased right upper extremity redness. She was evaluated during this hospit al course. She did receive infectious disease consult. She was treated with IV antibiotic therapy f or a possible cellulitis. However, it is not felt that this is secondary to infection. The patient did have fevers with rash and arthralgias. She was clinically improved prior to disposition. She phipps s been transitioned to prednisone in the outpatient setting. Her blood cultures have remained negati ve. It is possible that this is hypersensitive response to her tattoo ink that she had applied. We will continue her previously prescribed home medications. She will follow up in the outpatient [facility] with her primary care doctor for further evaluation and therapy. I have recommended that she have a hemoglobin A1c as well as potential further other rheumatological laboratory workup. I have discu ssed the patient's disposition with Dr. Daquan Jonhson who is in agreement with this plan. DISCHARGE MEDICATIONS: Please refer to EMR form. I have provided the patient a prescription for Med rol Dosepak as well as Percocet #10. There are no further pending studies. I spent greater than 35 minutes in the care, coordination, and management of this patient's dispositi on. /[id number]/MODL
== END 2018-11-19 14:46 | disposition home or self-care (01) | DRG 607 ==
LOC: CED 21:21 → CEDHOLD 22:58 → OBSVTOIN 23:45 → F3E 11-18 01:24
PROVIDERS: ADMIT Family Medicine; ATTEND Family Medicine
DX: R21 Rash and other nonspecific skin eruption (principal); Z68.43 Body mass index [BMI] 50.0-59.9, adult; R50.9 Fever, unspecified; M79.621 Pain in right upper arm; M79.89 Other specified soft tissue disorders; E66.01 Morbid (severe) obesity due to excess calories; E86.9 Volume depletion, unspecified; G40.909 Epilepsy, unspecified, not intractable, without status epilepticus; G43.909 Migraine, unspecified, not intractable, without status migrainosus; J45.909 Unspecified asthma, uncomplicated; G89.29 Other chronic pain; D63.8 Anemia in other chronic diseases classified elsewhere; Z86.14 Personal history of Methicillin resistant Staphylococcus aureus infection
CPT/HCPCS: 80048-ER; 83605-ER; 96361-ER; 96365; 96366-ER; 96375-ER; J0690; J1170; J1200; J1335; J1650; J1885; J2270; J2405; J2550; J3370